=== PATIENT | male | born 1945 | race Caucasian/White ===

== ENCOUNTER → 2017-08-26 | Outpatient (CLI) | payer OTHER, MEDICARE ==
[2015-01-09 09:17] VITALS: BP 148/71
[~2017-08-26] MED LIST: APIX5TAB PO; ATOR20TA58 PO; HYDR-2762 PO; METF500T4 PO; OMEP20CA9 PO; TEMA15CA PO
[2017-08-26 15:12] LABS: BASO # 0.1 x10^3/uL (0.0-0.2); BASO % 1 % (0-3); EOS % 3 % (0-3); HEMATOCRIT 43.4 % (39.0-53.0); HEMOGLOBIN 14.6 g/dL (13.0-17.5); LYMPH # 1.5 x10^3/uL (1.0-4.8); LYMPH % 30 % (24-48); MEAN CORPUSCULAR HEMOGLOBIN 31 pg (25-35); MEAN CORPUSCULAR HGB CONC 34 g/dL (31-37); MEAN CORPUSCULAR VOLUME 93 fL (79-100); MONO % 7 % (0-9); NEUT % 59 % (31-73); PLATELET COUNT 227 x10^3/uL (140-400); RED BLOOD COUNT 4.66 x10^6/uL (4.30-5.70); RED CELL DISTRIBUTION WIDTH 13.4 % (11.5-14.5); WHITE BLOOD COUNT 4.9 x10^3/uL (4.0-11.0)
[2017-08-26 15:24] LABS: INR 1.2 (0.8-1.1); PROTHROMBIN TIME PATIENT 14.5 SEC (11.7-14.0)
[2017-08-26 15:29] LABS: ALBUMIN 3.9 g/dL (3.4-5.0); ALBUMIN/GLOBULIN RATIO 1.1 (1.0-1.7); CALCIUM 8.6 mg/dL (8.5-10.1); GFR 73.5; POTASSIUM 3.6 mmol/L (3.5-5.1); TOTAL BILIRUBIN 0.8 mg/dL (0.2-1.0); TOTAL PROTEIN 7.4 g/dL (6.4-8.2)
== END | disposition home or self-care (01) ==
LOC: SURGPAT 13:46
PROVIDERS: ATTEND Orthopaedic Surgery
DX: Z01.818 Encounter for other preprocedural examination (principal); M67.432 Ganglion, left wrist
CPT/HCPCS: 36415; 80053; 82306; 83036; 85025; 85610; 85730

== ENCOUNTER 2017-09-02 06:43 | Day surgery (SDC) | payer OTHER, MEDICARE ==
--- NOTE | 2017-09-01 11:57 | PDOC1 ---
History and Physical Date of Admission Date of Admission DATE: 09/02/17 Identification/Chief Complaint Chief Complaint left hand numbness Problems: Source Source: Chart review History of Present Illness History of Present Illness The patient is a 72 year old male with numbness and tingling in his left hand for 6 months. A left upper extremity arterial doppler at [facility] on 08.04.17 showed no severe stenosis or occlusion of his left upper extremity arteries. He still complains of his left hand getting very cold, and states that his left hand gets much colder than his right during pheasant hunting. He was mountain biking today and his left hand went completely numb after about 30 minutes. An EMG showed bilateral carpal tunnel syndrome. He has no symptoms in his right hand. The patient states he scalded the volar aspect of his left wrist last winter and has a cyst. Past Medical History Cardiovascular: HTN CENTRAL NERVOUS SYSTEM: CVA Endocrine: Diabetes Past Surgical History Past Surgical History: Other (left ACL recon - 2004) Family History Family History liver disease Social History Smoke: No ALCOHOL: none Drugs: None Current Medications Current Medications Active Scripts Active Reported Temazepam 15 Mg Capsule 10 Mg PO HS PRN Omeprazole 20 Mg Capsule.dr 1 Cap PO DAILY Metformin Hcl 500 Mg Tablet 500 Mg PO BIDWMEALS Eliquis (Apixaban) 5 Mg Tablet 5 Mg PO BID Atorvastatin Calcium 20 Mg Tablet 1 Tab PO DAILY Allergies Allergies: Coded Allergies: No Known Drug Allergies (Unverified , 08/26/17) Physical Exam General: Alert, Oriented X3, Cooperative, No acute distress HEENT: Atraumatic, EOMI Lungs: Normal air movement Heart: RRR Abdomen: Soft Extremities: No clubbing, No cyanosis, No edema, Normal pulses, Other ( The overall alignment of the hand is normal. There is a 1.5cm x 1.5 cm cyst on the volar aspect of his wrist. Non pulsatile. Light touch sensation is decreased in the whole hand. There is no thenar atrophy. Decreased ulnar artery refill on Yobani's test. ) Skin: No rashes, No breakdown, No significant lesion Neuro: Normal speech, Sensation intact Psych/Mental Status: Mental status NL, Mood NL Vitals Vitals Vital Signs Date Time Temp Pulse Resp B/P (MAP) Pulse Ox O2 Delivery O2 Flow Rate FiO2 08/26/17 14:12 97.4 66 20 97 97.4 VTE Prophylaxis Ordered VTE Prophylaxis Devices: Yes VTE Pharmacological Prophylaxi: Yes Assessment/Plan Assessment/Plan The patient has had numbness in his left hand for about six months. The patient had an EMG which showed bilateral carpal tunnel syndrome but he has no symptoms in his right hand. He also has a ganglion cyst near his radial artery.The patient complains of his left hand getting very cold, and his Yobani's test is abnormal, with a slow ulnar artery refill. However, a recent arterial doppler showed no stenosis or occlusion of arteries in his left upper extremity. We discussed an open release of the median nerve, or carpal tunnel release, and ganglion cyst excision. The risks of surgery including the risk of undergoing anesthesia, bleeding, infection, nerve damage, artery damage, lack of resolution of symptoms, post-operative stiffness, and pillar pain were discussed at length. The benefits of surgery including pain relief and preventing further damage to his/her median nerve and possible muscle wasting were also discussed. We discussed the postoperative course of post-operative visits, suture removal, and activity restrictions after surgery. After a thorough discussion of the risks and benefits of carpal tunnel release and ganglion cyst excision, the patient elected to proceed with surgery. I will consult a vascular surgeon preoperatively. NABILA MANZANO Sep 01, 2017 11:57
[~2017-09-02] VITALS: Ht 181.6 cm; Wt 90.3 kg
[~2017-09-02 06:43] MED LIST changes: -HYDR-2762 PO; +ceFAZolin SODIUM IV Push 1 GM VIAL. IVP ONE
[2017-09-02] MEDS ORDERED: MORPHINE SULFATE 2 MG/ML DISP.SYRIN. IV PRN (07:00)
[2017-09-02] MEDS ORDERED: fentaNYL PF VIAL 100 MCG/2 ML VIAL IV PRN ×2 (07:00)
[2017-09-02] MEDS ORDERED: HYDROmorphone 2 MG/ML VIAL IV PRN (07:00)
[2017-09-02] MEDS ORDERED: IV RINGERS,LACTATED 1000ML 1,000 ML IV SCH ×2 (07:00→07:30)
[2017-09-02] MEDS ORDERED: LIDOCAINE 1% PF 2 ML VIAL. ID PRN (07:00)
[2017-09-02] MEDS ORDERED: ONDANSETRON PF 4 MG/2 ML VIAL. IV PRN (07:00)
[2017-09-02] MEDS ORDERED: PROCHLORPERAZINE 10 MG/2 ML VIAL. IV PRN (07:00)
[2017-09-02] MEDS ORDERED: BUPIVACAINE 0.25% 50 ML VIAL. ONE (07:58)
[2017-09-02] MEDS ORDERED: BUPIVAC MPF-EPI 0.5%-1:200000 10 ML VIAL. ONE (07:58)
[2017-09-02] MEDS ORDERED: BUPIVAC MPF-EPI 0.5%-1:200000 30 ML VIAL. ONE (07:59)
[2017-09-02] MEDS ORDERED: LIDOCAINE 2% PF Vial for OR 5 ML VIAL. ONE (09:13)
[2017-09-02] MEDS ORDERED: PROPOFOL 20 ML IV ONE (09:13)
[2017-09-02] MEDS ORDERED: SEVOFLURANE 31 TO 60 MINUTES. IH ONE (09:13)
[2017-09-02] MEDS ORDERED: ePHEDrine PF IN SALINE 50 MG/5 ML DISP.SYRIN IV ONE (09:36)
--- NOTE | 2017-09-02 10:53 | PDOC4 ---
Operative Note Operative Note Date of Procedure: September 02, 2017 Pre-Op Diagnosis: 1. Volar ganglion cyst left wrist. 2. Carpal tunnel syndrome, left. Post-Op Diagnosis: 1. Volar ganglion cyst left wrist. 2. Carpal tunnel syndrome, left. Procedure: 1. Excision of ganglion wrist, volar, primary CPT 97714 2. Neuroplasty median nerve at carpal tunnel (carpal tunnel release) CPT 87150 Surgeon: Edna Patel MD Dye Range Tender: Sanjuanita Zuniga PA-C Anesthesia: General EBL: 25 mL Specimens Obtained: Wrist ganglion cyst Complications: none Drains: none Tourniquet time: 20 minutes Indications for Procedure: The patient is a 72-year-old man with numbness in his hand and a mass at the volar aspect of the wrist. The mass is nonpulsatile , it is consistent with a ganglion. EMG confirms carpal tunnel syndrome. He and I discussed carpal tunnel release, and volar ganglion cyst excision. There was some abnormality on his initial office exam Allens test, and I had him obtain arterial Doppler preoperatively which was normal. I notified vascular surgery, in case intra-operative vascular surgery consultation was required. The patient and I discussed the risks, benefits and alternatives of surgery. We discussed the potential risk of recurrence of the ganglion cyst, recurrence of carpal tunnel syndrome, bleeding, infection, or damage to the radial artery which might require arterial grafting. All of his questions about surgery were answered and he desired to proceed. Procedure in Detail: The patient was identified in the preoperative holding area. The correct left upper extremity was marked by me. The patient was taken to the operating room where general anesthesia was used. The patient was positioned supine on the operating table. Preoperative antibiotics were given intravenously. A tourniquet was placed on the upper arm. A timeout procedure was performed. The limb was prepared in sterile fashion. Sterile drapes were applied. An Esmarch bandage was used to exsanguinate the limb and tourniquet was inflated to 250 mmHg. The carpal tunnel release was performed first. Caplans cardinal line was used as a landmark. A curvilinear incision was planned adjacent to the thenar crease, in line with the ulnar aspect of the palmaris longus, and the ulnar border of the ring finger nail. Loupe magnification was used throughout to prevent neurovascular injury. Sharp dissection was performed with a 15 blade scalpel. Retractors were placed by my billing assistant. The palmaris longest tendon was retracted toward the thumb. Care was made not to injure the superficial branch of the median nerve. The transverse carpal ligament was identified, and divided under direct loupe magnification proximally and distally ensuring a complete release. Scissor neuroplasty was used carefully along the volar forearm fascia to ensure complete release. Gentle scissor neuroplasty was performed along the ulnar aspect of the nerve to free adhesions. There was some thinning of the nerve in an hourglass fashion. Bipolar electrocautery was used for hemostasis. Irrigation was used. The skin edges were injected with 0.5% Marcaine with epinephrine. The incision was closed in a single layer with 3-0 Prolene horizontal mattress sutures. An incision was made along the volar forearm, near the flexor carpi radialis and using the volar approach of Aleksandar. Sharp dissection was used. Loupe magnification was again used. The volar ganglion cyst was easily identified, and it was adherent to the radial artery. Careful scissor dissection was used to free the cyst from the artery, and the radial vein was cauterized. Bipolar electrocautery was used to prevent nerve or artery injury. The cyst was removed piecemeal, and attached to the volar wrist capsule beneath the radial artery. With the artery carefully retracted by my billing assistant, cautery was applied to the volar wrist capsule to create scar tissue and help prevent recurrence. I also closed the capsule with 3-0 Vicryl interrupted sutures for additional scarring and closure of the capsule to prevent recurrence. The tourniquet was released. Bipolar electrocautery was used carefully for hemostasis. The radial artery remained pulsatile. Blood flow and normal pink coloration to the hand returned immediately. Copious irrigation was used. The skin edges were injected with 0.5 % Marcaine with epinephrine. The subcutaneous tissue was closed with 3-0 Vicryl interrupted sutures. Sanjuanita my billing assistant closed the skin with 3-0 Prolene horizontal mattress sutures. She applied Xeroform to both incisions, a bulky sterile dressing and a volar forearm wrist splint. Needle and sponge counts were correct. There were no apparent competitions. EDNA PATEL MD Sep 02, 2017 10:53
[2017-09-02] MEDS ORDERED: HYDR-2762 PO (11:13)
[2017-09-02 11:35] VITALS: BP 135/82
--- NOTE | 2017-09-04 14:29 | PATHOLOGY ---
PATHOLOGY REPORT * * * * * * * * FINAL DIAGNOSIS: Segment of dense fibroconnective and fibroadipose tissue, left wrist: - Ganglion cyst. (JPM:noe; 09/04/2017) REPORT ELECTRONICALLY SIGNED BY: Herrera Perez M.D. DATE/TIME: 09/04/2017 14:29 * * * * * * * * GROSS PATHOLOGY: Received in formalin labeled "Ventura King, left ganglion cyst," is a partially cystic piece of oneil soft tissue measuring 1.4 x 1.0 x 0.6 cm. Sectioning reveals a cystic cut surface. The tissue is submitted entirely in cassette A1. (SDY; 09/02/2017) INITIAL CPT CODE(S): A; 47136 Professional services performed by [facility] [place] [address] Technical services performed by [facility] at [address] [place] [address]. SPECIMEN(S) RECEIVED: A.Left wrist ganglion cyst CLINICAL HISTORY: Carpal tunnel syndrome PATIENT: VENTURA KING /AGE: 906/05/1945 (Age: 72) PATIENT #: [id number] ALT CASE #: SPECIMEN COLLECTION DATE: 09/02/2017 SPECIMEN RECEIVED DATE: 09/02/2017 [facility] - [address] [place] [address] - PHONE: [phone] * * * END OF REPORT * * *
== END 2017-09-02 11:51 | disposition home or self-care (01) ==
LOC: SURG 06:43
PROVIDERS: ATTEND Orthopaedic Surgery
DX: M67.432 Ganglion, left wrist (principal); G56.02 Carpal tunnel syndrome, left upper limb; E11.42 Type 2 diabetes mellitus with diabetic polyneuropathy; K21.9 Gastro-esophageal reflux disease without esophagitis; M19.90 Unspecified osteoarthritis, unspecified site; I48.91 Unspecified atrial fibrillation; I10 Essential (primary) hypertension; E78.00 Pure hypercholesterolemia, unspecified; Z87.01 Personal history of pneumonia (recurrent); Z86.69 Personal history of other diseases of the nervous system and sense organs; Z86.73 Personal history of transient ischemic attack (TIA), and cerebral infarction without residual deficits; Z79.01 Long term (current) use of anticoagulants
CPT/HCPCS: 25111; 64721; 82962; A4215; J2704; J3490; J0690; J2001